=== PATIENT | female | born 1995 ===

== ENCOUNTER 2022-09-15 02:43 | Inpatient (IN) ==
[2022-09-15] MEDS ORDERED: LACTATED RINGER'S 1,000 ML IV SCH ×2 (03:00→05:00)
--- NOTE | 2022-09-15 03:02 | History & Physical Report ---
Date of Service September 15, 2022 Assessment & Plan (1) with 41 completed weeks gestation: (2) brow presentation in brow right posterior position: Plan Discussed the situation with the patient, and band instrument maker. There is a brow/ant/right presentation and flexed head. +mec. Discussed that sometimes, with continued labor, the head will flex and will be able to deliver vaginally. Unfortunately, I feel the head is quite flexed at this time and we have meconium so unlikely to assume that position. I have recommended c/s at this point. They are agreeable. Risks of the procedure discussed with the patient including anesthesia, bleeding, transfusion, injury to internal organs, need for further surgery, injury to the baby, heart attack, blood clot, stroke and . Patient consents, will proceed. History of Present Illness Chief Complaint: nurse band instrument maker concerned for face presentation Primary Care Provider: NO PCP Patient is a 27yowf, Chetan, cared for by a nurse band instrument maker. EDC 09/08/22, so 41 weeks, confirmed by normal second trimester anatomy scan. She notes onset of contractions at 8:30pm. Patient notes lof, clear, at 10:22. Nurse band instrument maker notes that started noting mec at 1:30. Dictaphone Mechanic then noted that when she checked her she was 5cm but she was feeling facial structures. With those concerns, she presented to the hospital. I am on unassinged call. Patient and band instrument maker notes the has been uncomplicated. Labs--A+, gbs neg, rubella equiv, rprnr, hepb-. NO other testing. 24 week ultrasound appears normal. no abnl noted, ant placenta, no previa. Allergies Allergy/AdvReac Type Severity Reaction Status Date / Time No Known Allergies Allergy Unverified 09/15/22 03:03 Home Medications Medication Instructions Recorded Confirmed Type calcium carbonate 500 mg calcium 500 mg PO DAILY 09/15/22 09/15/22 History (1,250 mg) tablet magnesium 200 mg tablet 200 mg PO DAILY 09/15/22 09/15/22 History vits no.124-ferrous fum 1 tab PO DAILY 09/15/22 09/15/22 History 27 mg iron-folic acid 800 mcg tablet ( Vitamin) Patient History Medical History (Updated 09/15/22 @ 03:18 by Nery Suarez MD, FACOG) No known health problems Surgical History (Updated 09/15/22 @ 03:03 by Rosi Granados, MINISTERIO) No history of previous surgery Social History (Updated 09/15/22 @ 03:16 by Nery Suarez MD, FACOG) Smoking Status: Never smoker Hx Alcohol Use: No Hx Substance Use: No OB History g1--present FLANGER History noncontributory Physical Exam Constitutional: WD/WN, vitals as above Gastrointestinal (Abdomen): soft, gravid, nt Psychiatric: A+Ox3, euthymic affect Genitourinary: sse--brown mec noted sve--cephalic, brow presentation, brow on maternal right, small facial parts facing to the maternal left, head feels flexed toco--q2-3min efm--140s wtih mod variability, small accels noted, no significant decels Coding Level of Care Code None Diagnoses with 41 completed weeks gestation O48.0; Z3A.41 brow presentation in brow right posterior position O32.3XX0
[2022-09-15] MEDS ORDERED: Patient's ALLERGY Info needs ENTERED SCH (03:15)
[2022-09-15 03:22] LABS: Basophils # (auto) 0.02 K/uL (0-0.2); Basophils % (auto) 0.1 %; Eosinophils # (auto) 0.02 K/uL (0-0.50); Eosinophils % (auto) 0.1 %; Hematocrit (blood only) 31.1 % (37.0-47.0); Immature Granulocytes # (auto) 0.06 K/uL (0.01-0.20); Immature Granulocytes % (auto) 0.4 %; Lymphocytes # (auto) 1.24 K/uL (1.2-3.4); Lymphocytes % (auto) 8.1 %; Mean Corpuscular Hemoglobin 31.7 pg (25.0-34.0); Mean Corpuscular Hgb Conc 35.4 g/dL (32.0-36.0); Mean Corpuscular Volume 89.6 fL (80.0-100.0); Mean Platelet Volume 10.2 fL (9.4-12.4); Monocytes % (auto) 3.2 %; Neutrophils # (auto) 13.56 K/uL (1.40-6.50); Neutrophils % (auto) 88.1 %; Platelet Count 259 K/uL (130-400); RDW Coefficient of Variation 13.2 % (11.5-14.5); RDW Standard Deviation 43.3 fL (36.4-46.3); Red Blood Count 3.47 M/uL (4.20-5.40)
[2022-09-15] MEDS ORDERED: ceFAZolin 2000MG 2,000 MG/15 ML SYR IV ONE (03:30)
[2022-09-15] MEDS ORDERED: CITRIC ACID/SODIUM CITRATE 15 ML UDC PO ONE (03:30)
[2022-09-15] MEDS ORDERED: OXYTOCIN 10 UNITS/ML 10ML VIAL ONE (03:49)
[2022-09-15] MEDS ORDERED: MoRPHine SULFATE PF 1 MG/ML 10 ML AMP/VIAL ONE (03:49)
[2022-09-15] MEDS ORDERED: fentaNYL citrate PF 100 MCG/2 ML VIAL ONE (03:49)
--- NOTE | 2022-09-15 03:51 | Anesthesiology Consultation ---
Date of Service September 15, 2022 Assessment & Plan ASA ASA2E Proposed Anesthesia Anesthesia Type: Spinal Risk / Benefits Reviewed With: PT / POA / Parent / Guardian, Accepts Plan and Informed Consent Obtained History Surgery Operation Date: 09/15/22 03:00 Proposed Procedures p Section in LD - Nery Suarez MD, FACOG Height/Weight Height: 5 ft 3 in Weight: 71.214 kg Allergies Allergy/AdvReac Type Severity Reaction Status Date / Time No Known Allergies Allergy Unverified 09/15/22 03:03 Medications Home Medications Medication Instructions Recorded Confirmed Last Taken calcium carbonate 500 mg calcium 500 mg PO DAILY 09/15/22 09/15/22 09/13/22 (1,250 mg) tablet magnesium 200 mg tablet 200 mg PO DAILY 09/15/22 09/15/22 Unknown vits no.124-ferrous fum 1 tab PO DAILY 09/15/22 09/15/22 Unknown 27 mg iron-folic acid 800 mcg tablet ( Vitamin) Active Medications Generic Name Dose Route Start Last Admin Trade Name Velma PRN Reason Stop Dose Admin Lactated Ringer's 1,000 mls @ 999 mls/hr 09/15/22 03:00 09/15/22 03:12 Lr IV 09/15/22 04:00 999 mls/hr .Q1H1M TIFFANY Administration NPO Date Last Intake of Fluids: 09/15/22 Time Last Intake of Fluids: 02:15 Date Last Intake of Solids: 09/15/22 Time Last Intake of Solids: 20:00 Past Medical History Medical History No known health problems Exercise / Class Metabolic Activity II 4-5 Yardwork/Stairs/Walk up hill Past Surgical History Surgical History No history of previous surgery Past Anesthesia History No Hx of Anesthesia Complications and No Family Hx of Anesthesia Complications History of PONV No Hx of PONV and No Hx of Motion Sickness Social History Smoking Status: Never smoker Hx Alcohol Use: No Hx Substance Use: No substance use type: does not use Review of Systems denies fever/cough/ colds/ chest pain/ SOB/ ISAI denies ISAI Physical Exam Vital Signs Last Vital Signs Temp 36.8 C 09/15/22 03:19 Pulse 96 H 09/15/22 03:18 Resp 18 09/15/22 03:19 BP 114/64 09/15/22 03:18 ENMT Mouth: no TMJ abnormality and no dentition abnormality Thyromental Distance: > or= 3.5 Finger Breadths Mallampati Class: II Neck neck extension not limited Respiratory normal respiratory effort; no respiratory distress Auscultation: lungs clear to auscultation bilaterally Cardiovascular Rate/Rhythm: regular rate and regular rhythm Neurologic moves all extremities Psychiatric Orientation: alert and oriented x 3 Testing Laboratory Results 09/15/22 03:06
[2022-09-15] MEDS ORDERED: LACTATED RINGER'S 500 ML IV PRN (03:54)
[2022-09-15] MEDS ORDERED: NALBUPHINE HCL INJ 10 MG/ML AMP IV PRN (03:54)
[2022-09-15] MEDS ORDERED: ePHEDrine sulfate 50 MG/ML AMP IV PRN (03:54)
[2022-09-15] MEDS ORDERED: MoRPHine SULFATE 2 MG/ML CARP IV PRN (03:54)
[2022-09-15] MEDS ORDERED: NALOXONE HCL 1 MG in SODIUM CHLORIDE 0.9% 1000ML 1,000 ML IV PRN (03:54)
[2022-09-15] MEDS ORDERED: MoRPHine SULFATE PF 1 MG/ML 10 ML AMP/VIAL INT SPINAL ONE (03:54)
[2022-09-15] MEDS ORDERED: NALOXONE HCL 0.08 MG in SYRINGE 1.8 ML IV PRN (03:54)
[2022-09-15] MEDS ORDERED: diphenhydrAMINE 50 MG/ML VIAL IV PRN ×2 (03:54→21:55)
[2022-09-15] MEDS ORDERED: NALOXONE HCL 0.4 MG/1 ML VIAL/CARP IV PRN (03:54)
[2022-09-15] MEDS ORDERED: DC INTRASPINAL MORPHINE SCH (04:00)
[2022-09-15] MEDS ORDERED: SODIUM CHLORIDE 0.9% 1000ML 1,000 ML IV SCH (04:00)
[2022-09-15] MEDS ORDERED: NO NARCOTICS OR SEDATIVES SCH (04:00)
[2022-09-15] MEDS ORDERED: PHENYLEPHRINE 100MCG/ML 5ML SYR ONE (04:26)
[2022-09-15] MEDS ORDERED: ePHEDrine sulfate 50 MG/ML SYR ONE (04:29)
[2022-09-15 04:48] LABS: CO2 Cord Arterial Blood 42 mmHg (39.1-73.5); HCO3 Cord Arterial Blood 23 mmol/L (19.7-28.5); Oxygen Sat Cord Arterial Blood < 60.0 % (<60); PO2 Cord Arterial Blood 31 mmHg (4.1-31.7); pH Cord Arterial Blood 7.34 (7.1-7.38)
[2022-09-15] MEDS ORDERED: SENNA 8.6 MG TAB PO PRN (04:52)
[2022-09-15] MEDS ORDERED: DIPHTHERIA/TETANUS/PERTUSSIS 0.5mL SYR/VIAL (Age 7+yrs) IM ONE (04:52)
[2022-09-15] MEDS ORDERED: BENZOCAINE 20% AER SPR 82.5 GM CAN EXT PRN (04:52)
[2022-09-15] MEDS ORDERED: HYDROCORTISONE ACETATE 25 MG SUPP PR PRN (04:52)
[2022-09-15] MEDS ORDERED: MEASLES, MUMPS & RUBELLA VIRUS VIAL SQ ONE (04:52)
[2022-09-15] MEDS ORDERED: MAGNESIUM HYDROXIDE SUSP 30 ML UDC PO PRN (04:52)
--- NOTE | 2022-09-15 05:00 | Operative Report ---
PG Post Operative Report Pre & Post Diagnosis Operation Date: 09/15/22 03:49 Pre-Op Diagnosis: 1.) IUP at 41 weeks 2.) Labor 3.) Brow/Face Presentation Post-Op Diagnosis: Same as pre op I identified the patient and participated in the time-out.: Yes Procedure Operation Date: 09/15/22 03:49 Actual Procedures p Primary low transverse Section for the of a live female child at - Nery Suarez MD, FACOG Surgeon Nery Suarez MD, FACOG Weight Loss Counselor Caleb Liang RN Estimated Blood Loss 600 Findings Consistent with Post-Op Diagnosis viable female infant with deflexed head and face presentation, brow to right. Apgars 1/9. Normal appearing uterus tubes and ovaries Fluids 1200cc ivf 150cc urine Specimens cord blood Drains denis Anesthesia Type Spinal Complications none Disposition Accompanied Patient To Recovery: Yes Disposition: L&D Indications Patient is a 27yowf with iup at 41 0/7 weeks who presents to labor and delivery after laboring at home with a benzol still operator. Salon Manager noted meconium and thought face presentation. Face/brow presentation with deflexed head confirmed by me. Description of Procedure The patient was taken to the operating room where she was identified verbally a nd by marguerite. She was seated on the operating table where a spinal anesthetic was placed by anesthesia. She was then placed in the supine position with a leftward tilt. A Denis catheter was placed sterilely. the patient was prepped and draped in a normal standard fashion. the anesthetic was tested and found to be adequate. A time-out was held, identifying correct patient, procedure, positioning and preoperative antibiotics. There were no concerns. A Pfannenstiel skin incision was made with a knife and taken down to the underlying layer of fascia with the knife and Bovie electrocautery. Bleeding was attended to with the Bovie. The fascia was incised in the midline with the knife and taken out laterally with scissors. The superior edge of the fascial incision was grasped, elevated and the underlying layer of rectus muscle was taken off bluntly and with scissors. In a similar fashion, the inferior edge of the fascial incision was grasped, elevated and the underlying layer of rectus muscle was taken off bluntly and with scissors. The muscles were bluntly in the midline. The peritoneum was entered bluntly. The incision was then stretched. The bladder blade was placed. The vesicouterine peritoneum was identified, entered with scissors and taken out laterally with scissors. The bladder flap was created digitally A hysterotomy incision was scored with a kn mahesh, uterues entered with a snap and the incision was stretched superiorly and inferiorly with the coke crane operator's fingers. The operators hand was placed into the incision and the head was lifted into the incision and the face presented. The head was replaced and after a couple of attempts, the head was flexed and delivered. The rest of the was then delivered. Nuchal cord x 2 reduced. The baby was floppy and not vigorous. The cord was immediately clamped and cut and the was then handed off to the awaiting shear helper for drying and attention. Cord blood and segment were obtained. The placenta was Manually extracted. The uterus was exteriorized and cleared of all clot and debris with moistened laparotomy sponges. The hysterotomy incision was repaired in two layers, the first in a running locked layer, the second in an imbricating layer. Hemostasis was noted to be good. Posterior cul-de-sac was irrigated and cleared of all clot and debris. The hysterotomy incision was again inspected and found to be hemostatic. the uterus was reinteriorized. Hysterotomy incision was again inspected and found to be hemostatic. Rectus muscles were reapproximated with several interrupted stitches of 0 Vicryl. The fascia was then reapproximated with 0 Vicryl starting at the edges and meeting in the midline. The subcuticular tissues were copiously irrigated and bleeding was attended to with cautery. The skin was then closed with 4-0 Vicryl in a subcuticular fashion. All sponge lap and needle counts correct x 2. The patient tolerated the procedure well and was taken to the recovery room in stable condition. I attest to the content of the Intraoperative Record and any orders documented therein. Any exceptions are noted below.
[2022-09-15] MEDS: OXYTOCIN 20 UNITS in LACTATED RINGER'S 1,000 ML IV SCH ×2 (05:09→14:03)
[2022-09-15] MEDS: KETOROLAC 30 MG/ML VIAL IV PRN ×2 (05:10→12:32)
[2022-09-15] MEDS: SIMETHICONE 80 MG CHEW PO SCH ×4 (09:42→21:07)
[2022-09-15] MEDS: DOCUSATE SODIUM 100 MG CAP PO SCH ×2 (09:42→21:07)
[2022-09-15] MEDS: FERROUS SULFATE 325 MG TAB PO SCH (09:42)
[2022-09-15] MEDS: PRENATAL VITAMIN 1 TAB PO SCH (09:43)
--- NOTE | 2022-09-15 19:04 | Anesthesiology Progress Note ---
Date of Service September 15, 2022 Anesthesia Post Procedure Vital Signs Vital Signs: Temp Pulse Pulse Resp BP BP Pulse Ox 09/15/22 18:30 16 99 09/15/22 17:30 16 98 09/15/22 17:37 36.9 C 80 16 111/68 98 09/15/22 16:30 16 98 09/15/22 15:30 16 97 09/15/22 14:30 16 99 09/15/22 13:30 16 98 09/15/22 12:30 16 98 09/15/22 11:30 16 96 09/15/22 10:30 16 96 09/15/22 09:30 18 98 09/15/22 08:30 18 98 09/15/22 15:10 36.4 C L 80 18 111/77 99 09/15/22 07:30 18 97 09/15/22 07:30 36.6 C 93 H 18 108/66 97 09/15/22 07:30 09/15/22 11:51 36.7 C 85 18 107/64 96 09/15/22 06:10 18 09/15/22 05:40 36.8 C 18 09/15/22 05:40 18 09/15/22 05:40 18 09/15/22 05:30 16 09/15/22 05:20 18 09/15/22 05:10 18 09/15/22 05:00 16 09/15/22 05:28 36.8 C 18 09/15/22 03:19 36.8 C 18 09/15/22 07:22 84 93 09/15/22 07:20 91 H 107/54 L 09/15/22 07:18 97 H 98 09/15/22 07:13 87 96 09/15/22 07:10 85 114/58 L 09/15/22 07:08 95 H 99 09/15/22 07:03 96 H 99 09/15/22 07:00 103 H 107/57 L 09/15/22 06:58 97 H 99 09/15/22 06:53 92 H 97 09/15/22 06:50 100 H 110/58 L 09/15/22 06:48 105 H 99 09/15/22 06:43 98 H 97 09/15/22 06:40 93 H 115/55 L 09/15/22 06:38 93 H 98 09/15/22 06:33 92 H 98 09/15/22 06:30 95 H 114/58 L 09/15/22 06:28 104 H 98 09/15/22 06:23 103 H 99 09/15/22 06:19 94 H 93 09/15/22 06:20 90 117/60 09/15/22 06:18 91 H 96 09/15/22 06:13 103 H 97 09/15/22 06:10 100 H 117/60 09/15/22 06:08 95 H 99 09/15/22 06:03 101 H 99 09/15/22 06:00 98 H 111/57 L 09/15/22 05:58 98 H 99 09/15/22 05:53 101 H 98 09/15/22 05:50 104 H 116/67 09/15/22 05:48 105 H 96 09/15/22 05:43 94 H 98 09/15/22 05:41 96 H 122/88 09/15/22 05:38 100 H 98 09/15/22 05:33 98 H 99 09/15/22 05:30 97 H 131/84 09/15/22 05:28 96 H 99 09/15/22 05:27 102 H 94 09/15/22 05:23 97 H 98 09/15/22 05:20 93 H 121/75 09/15/22 05:11 93 H 100 09/15/22 05:10 92 H 116/72 09/15/22 05:06 102 H 100 09/15/22 05:01 103 H 100 09/15/22 05:00 90 120/63 09/15/22 04:56 86 100 09/15/22 04:51 97 H 100 09/15/22 04:49 88 128/57 L 09/15/22 03:18 36.8 C 96 H 18 114/64 Pulse Ox O2 Del Method O2 Del Method O2 Flow Rate 09/15/22 18:30 09/15/22 17:30 09/15/22 17:37 Room Air 09/15/22 16:30 09/15/22 15:30 09/15/22 14:30 09/15/22 13:30 09/15/22 12:30 09/15/22 11:30 09/15/22 10:30 09/15/22 09:30 09/15/22 08:30 09/15/22 15:10 Room Air 09/15/22 07:30 09/15/22 07:30 Room Air 09/15/22 07:30 97 Room Air 0 09/15/22 11:51 Room Air 09/15/22 06:10 09/15/22 05:40 09/15/22 05:40 09/15/22 05:40 09/15/22 05:30 09/15/22 05:20 09/15/22 05:10 09/15/22 05:00 09/15/22 05:28 09/15/22 03:19 09/15/22 07:22 09/15/22 07:20 09/15/22 07:18 09/15/22 07:13 09/15/22 07:10 09/15/22 07:08 09/15/22 07:03 09/15/22 07:00 09/15/22 06:58 09/15/22 06:53 09/15/22 06:50 09/15/22 06:48 09/15/22 06:43 09/15/22 06:40 09/15/22 06:38 09/15/22 06:33 09/15/22 06:30 09/15/22 06:28 09/15/22 06:23 09/15/22 06:19 09/15/22 06:20 09/15/22 06:18 09/15/22 06:13 09/15/22 06:10 09/15/22 06:08 09/15/22 06:03 09/15/22 06:00 09/15/22 05:58 09/15/22 05:53 09/15/22 05:50 09/15/22 05:48 09/15/22 05:43 09/15/22 05:41 09/15/22 05:38 09/15/22 05:33 09/15/22 05:30 09/15/22 05:28 09/15/22 05:27 09/15/22 05:23 09/15/22 05:20 09/15/22 05:11 09/15/22 05:10 09/15/22 05:06 09/15/22 05:01 09/15/22 05:00 09/15/22 04:56 09/15/22 04:51 09/15/22 04:49 09/15/22 03:18 Pain Intensity Abdomen: Pain Intensity: 4 Transfer of Care Handoff Completed per policy Notes Mental Status: alert / awake / arousable and participated in evaluation Patient Amnestic to Procedure: Yes Nausea / Vomiting: adequately controlled Pain: adequately controlled Airway Patency, RR, SpO2: stable & adequate BP & HR: stable & adequate Hydration State: stable & adequate Neuraxial Anesthesia: was administered and sensory block is resolving Anesthetic Complications: no major complications apparent and Pt Satisfied with anesthetic care
[2022-09-15] MEDS ORDERED: MEPERIDINE HCL 50 MG/ML CARP IV PRN (21:55)
[2022-09-15] MEDS ORDERED: KETOROLAC 30 MG/ML VIAL IV PRN (21:55)
[2022-09-15] MEDS ORDERED: PROMETHAZINE HCL 25 MG in SODIUM CHLORIDE 0.9% 50 ML IV PRN (21:55)
[2022-09-15] MEDS ORDERED: ONDANSETRON INJ 2 MG/ML 2 ML VIAL IV PRN (21:55)
[2022-09-15] MEDS ORDERED: diphenhydrAMINE Capsule 25 MG CAP PO PRN (21:55)
[2022-09-15] MEDS: oxyCODONE/ACETAMINOPHEN 5mg/325mg TAB PO PRN (23:44)
[2022-09-15] MEDS: IBUPROFEN 600 MG TAB PO PRN (23:45)
[2022-09-16] MEDS: IBUPROFEN 600 MG TAB PO PRN ×5 (04:32→23:52)
[2022-09-16] MEDS: oxyCODONE/ACETAMINOPHEN 5mg/325mg TAB PO PRN ×5 (04:33→23:52)
--- NOTE | 2022-09-16 05:20 | Obstetrical Progress Note ---
Date of Service <Jennifer CoxMarcella Delaney DO - Last Filed: 09/16/22 06:16> September 16, 2022 Assessment & Plan <Jennifer Rama Delaney DO - Last Filed: 09/16/22 06:16> (1) Status post section: Feels well today. Eating well, voiding well, ambulating well. - Routine care -- OOB, ambulation, diet progression as tolerated - After discharge will have 6 week follow-up <Charlee Miller MD - Last Filed: 09/16/22 06:52> (1) Status post section: Subjective <Jennifer Rama Delaney DO - Last Filed: 09/16/22 06:16> Radha is a 27 y/o female who is POD #1 following delivery at 41 weeks. She reports feeling well overall this morning. Mild abdominal cramping, pain well managed on analgesics. Voiding. Tolerating meals overnight and able to ambulate some. Is passing gas, no bowel movement. Has some persistent lochia with some improvement this morning. Currently breast feeding. Review of Systems Denies fever, chills, sweats Denies shortness of breath, difficulty breathing, chest pain, palpitations, chest pressure. Denies breast pain. Denies dysuria. Denies headache or changes in vision. Physical Exam <Jennifer Delaney DO - Last Filed: 09/16/22 06:16> General: Alert, oriented. No acute distress. Cardiac: Regular rate and rhythm, no murmurs/rubs/gallops. Respiratory: Clear to auscultation bilaterally a/p, no wheezes/rales/rhonchi. No increased work of breathing. Symmetrical chest rise. No respiratory distress. Abdomen: Soft, nontender, nondistended. Uterus: Uterine fundus firm, palpable 3 cm below umbilicus. Surgical dressing clean and dry. Lower Extremities: No lower extremity edema or swelling. No deep calf pain. Results & Data <Jennifer Delaney DO - Last Filed: 09/16/22 06:16> Vital Signs (Past 12 Hours) Vital Signs Temp Pulse Resp BP BP Pulse Ox O2 Del Method 09/16/22 03:15 36.7 C 92 H 18 94/60 L 97 Room Air 09/15/22 22:00 18 98 09/15/22 21:30 18 98 09/15/22 20:30 18 99 09/15/22 19:30 18 98 09/15/22 23:37 36.9 C 96 H 18 101/65 96 Room Air 09/15/22 19:12 36.9 C 93 H 18 110/72 97 Room Air 09/15/22 18:30 16 99 09/15/22 17:30 16 98 09/15/22 17:37 36.9 C 80 16 111/68 98 Room Air <Charlee Miller MD - Last Filed: 09/16/22 06:52> Co-Signing Physician Notes Resident Physician Supervision Note: I interviewed and examined the patient. Discussed with Dr. Delaney and agree with findings and plan as documented in the note. Any exceptions or clarifications are listed here: [ ] Documented By: Charlee Miller MD, FACOG Resident Activity Tracking <Jennifer Delaney DO - Last Filed: 09/16/22 06:16> Resident Involvement: Resident Care Provided Care Provided: OB Delivery (post )
[2022-09-16 08:02] LABS: Basophils # (auto) 0.04 K/uL (0-0.2); Basophils % (auto) 0.5 %; Eosinophils # (auto) 0.16 K/uL (0-0.50); Eosinophils % (auto) 1.8 %; Hematocrit (blood only) 29.8 % (37.0-47.0); Hemoglobin 9.8 g/dl (12.0-16.0); Immature Granulocytes # (auto) 0.02 K/uL (0.01-0.20); Immature Granulocytes % (auto) 0.2 %; Lymphocytes # (auto) 1.32 K/uL (1.2-3.4); Lymphocytes % (auto) 15.1 %; Mean Corpuscular Hemoglobin 31.1 pg (25.0-34.0); Mean Corpuscular Hgb Conc 32.9 g/dL (32.0-36.0); Mean Corpuscular Volume 94.6 fL (80.0-100.0); Mean Platelet Volume 10.2 fL (9.4-12.4); Monocytes # (auto) 0.59 K/uL (0.11-0.59); Monocytes % (auto) 6.7 %; Neutrophils # (auto) 6.63 K/uL (1.40-6.50); Neutrophils % (auto) 75.7 %; Platelet Count 246 K/uL (130-400); RDW Coefficient of Variation 13.5 % (11.5-14.5); RDW Standard Deviation 46.3 fL (36.4-46.3); Red Blood Count 3.15 M/uL (4.20-5.40); White Blood Count 8.76 K/ul (4.8-10.8)
[2022-09-16] MEDS: FERROUS SULFATE 325 MG TAB PO SCH (09:54)
[2022-09-16] MEDS: DOCUSATE SODIUM 100 MG CAP PO SCH ×2 (09:54→19:43)
[2022-09-16] MEDS: PRENATAL VITAMIN 1 TAB PO SCH (09:54)
[2022-09-16] MEDS: SIMETHICONE 80 MG CHEW PO SCH ×3 (09:55→19:43)
[2022-09-16] MEDS ORDERED: bisacodyL 5 MG TABEC PO SCH (20:00)
[2022-09-17] MEDS: oxyCODONE/ACETAMINOPHEN 5mg/325mg TAB PO PRN ×2 (03:51→11:04)
[2022-09-17] MEDS: IBUPROFEN 600 MG TAB PO PRN ×2 (03:52→11:04)
[2022-09-17] MEDS ORDERED: bisacodyL 10 MG SUPP PR PRN (04:52)
--- NOTE | 2022-09-17 06:11 | Obstetrical Progress Note ---
Date of Service September 17, 2022 Assessment & Plan (1) Status post section: Feels well today. Eating well, voiding well, ambulating well. - Routine care -- OOB, ambulation, diet progression as tolerated - After discharge will have 6 week follow-up Chantal Garcia is a 27 y/o female who is POD #1 following delivery at 41 weeks. She reports feeling well overall this morning. Mild abdominal cramping, pain well managed on analgesics. Voiding. Tolerating meals overnight and able to ambulate some. Is passing gas, no bowel movement. Has some persistent lochia with some improvement this morning. Currently breast feeding. Review of Systems Denies fever, chills, sweats Denies shortness of breath, difficulty breathing, chest pain, palpitations, chest pressure. Denies breast pain. Denies dysuria. Denies headache or changes in vision. Physical Exam General: Alert, oriented. No acute distress. Cardiac: Regular rate and rhythm, no murmurs/rubs/gallops. Respiratory: Clear to auscultation bilaterally a/p, no wheezes/rales/rhonchi. No increased work of breathing. Symmetrical chest rise. No respiratory distress. Abdomen: Soft, nontender, nondistended. Uterus: Uterine fundus firm, palpable 3 cm below umbilicus. Surgical incision well healing without discharge. Lower Extremities: No lower extremity edema or swelling. No deep calf pain. Results & Data Vital Signs (Past 12 Hours) Vital Signs Temp Pulse Resp BP Pulse Ox O2 Del Method 09/16/22 23:40 36.7 C 89 18 117/76 97 Room Air 09/16/22 19:30 36.6 C 70 18 120/69 98 Room Air Resident Activity Tracking Resident Involvement: Resident Care Provided Care Provided: OB Delivery
--- NOTE | 2022-09-17 06:41 | Obstetrical Progress Note ---
Date of Service September 17, 2022 Assessment & Plan (1) Status post section: Plan stable, routine pp care. doing well and wants to go home. discussed pain meds and checked on papdmp, no issues. instructions reviewed, plan 6wk pp check. discussed labs and hgb, result pending this am. rec bid fe x 6wks. Day #:: 2 Subjective Ambulation: ambulating normally Voiding: no voiding problems Passing Gas:: Yes Diet Tolerance:: regular diet Lochia:: Small Feeding Type:: breast feeding denies pain concerns wants to go home. am hgb pending. Constitutional: + as per Subjective / HPI Physical Exam Constitutional WD/WN, vitals as above Respiratory normal respiratory effort, lungs clear to auscultation Cardiovascular Rate/Rhythm: regular rate and regular rhythm Gastrointestinal (Abdomen) Inspection/Auscultation: abdomen normal to inspection and + abdominal surgical incision (c/d/i) Percussion/Palpation: abdomen soft Fundus firm 2cm down Musculoskeletal nt calves no edema Neurologic grossly normal Psychiatric A+Ox3, euthymic affect Results & Data Vital Signs (Past 12 Hours) Vital Signs Temp Pulse Resp BP Pulse Ox O2 Del Method 09/16/22 23:40 98.1 F 89 18 117/76 97 Room Air 09/16/22 19:30 97.9 F 70 18 120/69 98 Room Air
[2022-09-17 06:57] LABS: Hematocrit (blood only) 26.8 % (37.0-47.0)
[2022-09-17] MEDS: DOCUSATE SODIUM 100 MG CAP PO SCH (08:27)
[2022-09-17] MEDS: FERROUS SULFATE 325 MG TAB PO SCH (08:27)
[2022-09-17] MEDS: PRENATAL VITAMIN 1 TAB PO SCH (08:27)
--- NOTE | 2022-09-19 13:49 | Discharge Summary ---
Date of Service September 19, 2022 Admission HPI Per Admitting Provider Patient is a 27yowf, Chetan, cared for by a nurse certified registered dental assistant. EDC 09/08/22, so 41 weeks, confirmed by normal second trimester anatomy scan. She notes onset of contractions at 8:30pm. Patient notes lof, clear, at 10:22. Nurse certified registered dental assistant notes that started noting mec at 1:30. Entry Level Electrical Engineer then noted that when she checked her she was 5cm but she was feeling facial structures. With those concerns, she presented to the hospital. I am on unassinged call. Patient and certified registered dental assistant notes the has been uncomplicated. Labs--A+, gbs neg, rubella equiv, rprnr, hepb-. NO other testing. 24 week ultrasound appears normal. no abnl noted, ant placenta, no previa. Discharge Data Consultations 09/15/22 02:56 Consult Anesthesiology Stat Procedures Performed Operation Date: 09/15/22 03:49 Actual Procedures p Primary Section for the of a live female child at 0417. - Nery Suarez MD, [facility] Course (1) Status post section: (2) brow presentation in brow right posterior position: (3) with 41 completed weeks gestation: Plan Patient presented to labor and delivery . Face presentation with deflexed head confirmed. Strip was category two. Thick meconium noted. Recommended c/s. Underwent a primary low without difficulty. EBL--600cc. Patient's postoperative course uncomplicated--tolerated a regular diet, ambulated without difficulty, tolerated po pain meds, voided after removal of her denis. Was d/c on pod#2 with iron. Was encouraged to have a pp visit in the office. Did discuss that she had the type of c/s where she could have a brannon/, but that this would be considered a high risk and would recommend that she have traditional ob care with a physician. She expresses understanding. Coding Level of Care Code None Diagnoses Status post section Z98.891 brow presentation in brow right posterior position O32.3XX0 with 41 completed weeks gestation O48.0; Z3A.41
== END 2022-09-17 12:33 | disposition home or self-care (01) | DRG 788 ==
LOC: OPB 02:43 → 4S1 02:46 → 4E2 07:25